=== PATIENT | male | born 1995 | race Caucasian/White ===

== ENCOUNTER 2019-08-17 08:10 | Emergency (ER) | payer OTHER ==
[2019-08-17 08:23] VITALS: BMI 21.7
[2019-08-17] MEDS ORDERED: SODIUM CHLORIDE 1,000 ML IV STA ×2 (08:35→09:53)
[2019-08-17] MEDS ORDERED: ONDANSETRON 4 MG/2 ML VIAL IVPUSH ONE (08:35)
[2019-08-17] MEDS ORDERED: KETOROLAC TROMETHAMINE 30 MG/1 ML VIAL IVPUSH STA (08:35)
[2019-08-17 09:06] LABS: BASO % 0.3 % (0-2.0); HEMATOCRIT 41.4 % (35.4-49); HEMOGLOBIN 13.8 GM/dL (11.7-16.9); MCH 27.9 pg (25.7-33.7); MCHC 33.2 g/dl (32.0-35.9); MEAN CELL VOLUME 83.9 fl (80-96); MEAN PLT VOLUME 8.9 fl (7.5-11.1); NEUT % 94.7 % (42.8-82.8); PLATELET COUNT 267 K/MM3 (134-434); RBC 4.93 M/mm3 (4.00-5.60); RDW 13.5 % (11.9-15.9); WHITE BLOOD COUNT 16.7 K/mm3 (4.0-10.0)
[2019-08-17] MEDS ORDERED: KETOROLAC TROMETHAMINE 30 MG/1 ML VIAL ONE (09:06)
[2019-08-17] MEDS ORDERED: ONDANSETRON 4 MG/2 ML VIAL ONE (09:06)
[2019-08-17 09:28] LABS: MAGNESIUM 2.4 mg/dL (1.8-2.4)
[2019-08-17 09:37] LABS: ALBUMIN 4.4 g/dl (3.4-5.0); BILIRUBIN,TOTAL 0.5 mg/dL (0.2-1); BLOOD UREA NITROGEN 8.5 mg/dL (7-18); CALCIUM 9.4 mg/dL (8.5-10.1); CREATININE 0.9 mg/dL (0.55-1.3); POTASSIUM 3.8 mmol/L (3.5-5.1); TOT PROT 7.6 g/dl (6.4-8.2)
--- NOTE | 2019-08-17 09:41 | PDOC ---
History of Present Illness - General Chief Complaint: Pain, Acute Stated Complaint: ABD PAIN,VOMITNG Time Seen by Provider: 08/17/19 08:23 History Source: Patient Exam Limitations: No Limitations - History of Present Illness Travel History: No Initial Comments: 08/17/19 09:03 24-year-old male with history of cholecystectomy presents to the ED with 4 days of nausea vomiting and now with diarrhea x3. Mother states symptoms began Richardson night after drinking alcohol and has continued since. Patient has been unable to sleep, take anything including ice chips by mouth due to the vomiting. Patient denies urinary frequency or back pain and denies any GI history. Patient does state upper abdominal pain greater in the right upper quadrant which he describes as a sharp cramping sensation. Patient denies fever , chills but states generalized weakness Timing/Duration: reports: constant Quality: reports: moderate, cramping Abdominal Pain Onset Location: reports: RUQ, flank Pain Radiation: reports: no radiation Activities at Onset: reports: none Aggravating Factors: improves with: Eating Alleviating Factors: improves with: Vomiting Past History - Travel Traveled outside of the country in the last 30 days: No Close contact w/someone who was outside of country & ill: No - Past Medical History Allergies/Adverse Reactions: Allergies Allergy/AdvReac Type Severity Reaction Status Date / Time No Known Allergies Allergy Verified 08/17/19 08:21 Home Medications: Ambulatory Orders NK [No Known Home Medication] 08/17/19 COPD: No - Surgical History Cholecystectomy: Yes - Psycho Social/Smoking Cessation Hx Smoking History: Never smoked Information on smoking cessation initiated: Yes Hx Alcohol Use: (rarely (did this past )) Patient Lives Alone: No Lives with/in: parents Review of Systems - Review of Systems Able to Perform ROS?: Yes Constitutional: Yes: Loss of Appetite, Malaise, Weakness HEENTM: No: Symptoms Reported Respiratory: No: Symptoms reported Cardiac (ROS): No: Symptoms Reported ABD/GI: Yes: Diarrhea, Nausea, Poor Appetite, Poor Fluid Intake, Vomiting, Abdominal cramping : No: Symptoms Reported Musculoskeletal: No: Symptoms Reported Integumentary: No: Symptoms Reported Neurological: No: Symptoms reported Hematologic/Lymphatic: No: Symptoms Reported *Physical Exam - Vital Signs Last Vital Signs Temp Pulse Resp BP Pulse Ox 98.4 F 87 18 140/74 98 08/17/19 08:21 08/17/19 08:21 08/17/19 08:21 08/17/19 08:21 08/17/19 08:21 - Physical Exam General Appearance: Yes: Nourished, Appropriately Dressed. No: Apparent Distress HEENT: negative: Pale Conjunctivae Neck: positive: Supple Respiratory/Chest: positive: Lungs Clear, Normal Breath Sounds. negative: Respiratory Distress, Accessory Muscle Use Cardiovascular: positive: Regular Rhythm, Regular Rate. negative: Murmur Gastrointestinal/Abdominal: positive: Normal Bowel Sounds, Soft, Tenderness ( Right upper quadrant right flank and mild right lower quadrant tenderness). negative: Distended Musculoskeletal: negative: CVA Tenderness Extremity: positive: Normal Inspection Integumentary: positive: Normal Color, Warm, Moist Neurologic: positive: Motor Strength 5/5 (Ambulatory) ED Treatment Course - LABORATORY CBC & Chemistry Diagram: 08/17/19 08:46 08/17/19 08:46 Medical Decision Making - Medical Decision Making 08/17/19 09:06 Chief complaint: Nausea and vomiting with diarrhea for the past 4 days. Patient with upper right quadrant cramping and states inability to sleep and tolerate by mouth Exam: Vital signs stable. Patient appears dry, right upper quadrant and right flank tenderness with mild right lower quadrant tenderness negative psoas negative obturator negative McBurney's Plan: Labs, antiemetics, fluids, urine, Toradol and reassessment . I will consider imaging once labs are reviewed 08/17/19 09:57 Laboratory Tests 08/17/19 08/17/19 08/17/19 08:46 08:46 08:46 WBC 16.7 H Hgb 13.8 Hct 41.4 Absolute Neuts (auto) 15.8 H Neutrophils % 94.7 H Lymphocytes % 3.0 L Monocytes % 2.0 L Anion Gap 6 L Random Glucose 123 H Lactic Acid 1.9 Total Bilirubin 0.5 AST 16 ALT 31 Lipase 08/17/19 08:46 WBC Hgb Hct Absolute Neuts (auto) Neutrophils % Lymphocytes % Monocytes % Anion Gap Random Glucose Lactic Acid Total Bilirubin AST ALT Lipase 104 Patient ordered for abdominal CT with contrast. Patient has no continual nausea and states pain has subsided moderately. Patient ordered for second liter of fluid urine and collection pending 08/17/19 12:50 Laboratory Tests 08/17/19 11:06 Urine pH > 9.0 H Ur Specific Cameron 1.072 H Urine Protein Negative Urine Glucose (UA) Negative Urine Ketones Negative Urine Blood Negative Urine Nitrite Negative Urine Bilirubin Negative Ur Leukocyte Esterase Negative Patient continues to feel better. 08/17/19 12:51 CT of the abdomen shows a low-density lesion identified in the right lobe of the liver measuring 8.5 mm. The pancreatic head is not well visualized. There is thickening of the antral wall first and second portion of the duodenum. Duodenitis is not excluded there is no evidence to suggest bowel obstruction. The light visualized portions of the appendix appear unremarkable. No free air or fluid is present. Based on patient's history of excessive alcohol use Friday night followed by symptoms I believe his symptoms are related to the alcohol intake. Patient will be discharged home with Zofran recommendations to follow a bland diet and to return to the ED if his symptoms worsen or he is unable to tolerate by mouth Discharge - Discharge Information Problems reviewed: Yes Clinical Impression/Diagnosis: Nausea and vomiting Condition: Improved Disposition: HOME - Follow up/Referral - Patient Discharge Instructions Patient Printed Discharge Instructions: Nausea and Vomiting-Adult Additional Instructions: Please follow a bland diet for the next 48 hours and then you may advance as tolerated. Take Zofran as needed for nausea if your symptoms worsen despite above recommendations please return to the ED. - Post Discharge Activity
[2019-08-17 10:04] LABS: ANISOCYTOSIS 0; MACROCYTOSIS 0; PLATELET ESTIMATE NORMAL
[2019-08-17 12:35] LABS: URINE APPEARANCE CLEAR; URINE BILIRUBIN NEGATIVE (NEGATIVE); URINE COLOR YELLOW; URINE GLUCOSE (UA) NEGATIVE (NEGATIVE)
[2019-08-17 12:36] LABS: PH,URINE > 9.0 (5.0-8.0); URINE KETONE NEGATIVE (NEGATIVE); URINE LEUK ESTERASE NEGATIVE (NEGATIVE); URINE NITRITE NEGATIVE (NEGATIVE); URINE PROTEIN NEGATIVE (NEGATIVE)
[2019-08-17 12:40] VITALS: BP 135/65; PULSE 78; TEMP 98.5
== END 2019-08-17 13:09 | disposition home or self-care (01) ==
LOC: JER 08:10
PROC: 3E0337Z Introduction of Electrolytic and Water Balance Substance into Peripheral Vein, Percutaneous Approach (ICD-10-PCS; principal; 2019-08-17)
PROC: 3E033GC Introduction of Other Therapeutic Substance into Peripheral Vein, Percutaneous Approach (ICD-10-PCS; 2019-08-17)
PROC: 3E0333Z Introduction of Anti-inflammatory into Peripheral Vein, Percutaneous Approach (ICD-10-PCS; 2019-08-17)
DX: R11.2 Nausea with vomiting, unspecified (principal)
CPT/HCPCS: 36415; 74177-TC; 80053; 81003; 83605; 83690; 83735; 85025; 87086; 96361; 96374; 96375; 99283-25; J7030

== ENCOUNTER 2020-04-09 03:26 | Emergency (ER) | payer SELFPAY ==
--- NOTE | 2020-04-09 03:31 | PDOC ---
History of Present Illness - General Stated Complaint: FALL,LACERATION FOREHEAD Time Seen by Provider: 04/09/20 03:30 History Source: Patient, EMS Exam Limitations: No Limitations - History of Present Illness Initial Comments: Pt is a 24 yo M, with no significant PMH, who is presenting via EMS for a head injury. EMS states pt was drinking alcohol with his friends, when he tripped on the sidewalk and hit his head. EMS denies LOC from friends' history. Pt endorses drinking alcohol, but does not provide a consistent story. Pt cannot provide reliable ROS due to intoxication. Allergies: NKDA PCP: Unknown Social: Pt endorses drinking beer and Evon. Pt denies any cigarette or drug use. Pt denies any recent travel or sick contacts. Surgical: cholecystectomy Family: no relevant history. 04/09/20 04:24 04/09/20 06:38 Past History - Travel History Traveled outside of the country in the last 30 days: No Close contact w/someone who was outside of country & ill: No - Medical History Allergies/Adverse Reactions: Allergies Allergy/AdvReac Type Severity Reaction Status Date / Time No Known Allergies Allergy Verified 04/09/20 03:37 Home Medications: Ambulatory Orders Ondansetron HCl [Zofran] 4 mg PO TID PRN #12 tablet 08/17/19 COPD: No - Surgical History Cholecystectomy: Yes - Immunization History Immunization Up to Date: No - Psycho-Social/Smoking History Smoking History: Never smoked Review of Systems - Review of Systems Able to Perform ROS?: No (intox) *Physical Exam - Physical Exam Vitals stable, pt afebrile. Pt in NAD, thin body habitus. Pt intoxicated and is slurring speech. Pt alert but disoriented (oriented only to person) furnace repairer generally intact, muscular strength and sensation intact. No midline spinal tenderness, step-offs, or crepitus. Head normocephalic. ~2 cm linear laceration to forehead. Bleeding well- controlled. No foreign debris. Eyes PERRLA, EOMI. Oropharynx without erythema or exudates, no LAD b/l. No nasal congestion. Hearing intact. Clear heart sounds, S1/S2, no JVD, b/l pedal edema, or heart murmur. Clear lung sounds, no respiratory distress, wheezes, crackles, or accessory muscle use. No abdominal or CVA tenderness to palpation, no rebound, no guarding. Abdomen soft, non-distended, and with normoactive bowel sounds. Skin without jaundice or rash. 04/09/20 06:41 Procedures - Laceration/Wound Repair Anterior Frontal Wound Length: to 2.5 cm Wound Explored: clean, no foreign body present Wound's Depth, Shape: superficial, linear Irrigated w/ Saline: Yes Anesthesia: 1% Lidocaine w/ Epi Amount of Anesthetic (ccs): 4 Wound Debrided: minimal Wound Repaired With: Sutures Suture Size/Type: 6:0 Number of Sutures: 5 Layer Closure: No Number of Deep Layer Sutures: 0 Sterile Dressing Applied: Yes Medical Decision Making - Medical Decision Making Pt was seen at bedside, also will be seen by attending Dr. Burrows. Pt presenting with head injury s/p intoxication and fall. Laceration repaired using 1% epi with lido, 5 (size 6) sutures placed. See procedure note. Will continue to reassess pt and monitor for symptomatic improvement. 04/09/20 06:43 CTH and C-spine without acute pathology. Pending clinical sobriety. Pt signed out to day team. 04/09/20 06:44 Discharge - Discharge Information Problems reviewed: Yes Clinical Impression/Diagnosis: Head injury Qualifiers: Encounter type: initial encounter Qualified Code(s): S09.90XA - Unspecified injury of head, initial encounter Forehead laceration Qualifiers: Encounter type: initial encounter Qualified Code(s): S01.81XA - Laceration without foreign body of other part of head, initial encounter Alcohol intoxication Qualifiers: Complication of substance-induced condition: uncomplicated Qualified Code(s): F10.920 - Alcohol use, unspecified with intoxication, uncomplicated - Follow up/Referral - Patient Discharge Instructions Patient Printed Discharge Instructions: DI for Laceration Repair -- Simple, DI for Closed Head Injury, DI for Alcohol Poisoning Additional Instructions: You were seen in the ER today after a fall and alcohol use. The results of your imaging today was normal. You received 5 sutures on your forehead which need to be removed in 5 days. Please keep the area clean and dry for 24 hours. Do not scrub the area as you can remove or break the sutures. After 24 hours, you can gently clean the area with warm water and soap. Please return to the ER for a wound check if you have expanding redness or drainage from the area. Please follow-up with your primary care doctor within 1-2 days to discuss your visit and make sure your symptoms have improved. Please return to the ER if you have any worsening pain, development of fevers or chills, loss of consciousness, inability to tolerate food or fluids, or any other concerns. - Post Discharge Activity
--- NOTE | 2020-04-09 03:31 | PDOC ---
Attending Attestation - Resident Resident Name: Juanita Escudero - ED Attending Attestation I have performed the following: I have examined & evaluated the patient, The case was reviewed & discussed with the resident, I agree w/resident's findings & plan - HPI HPI: 04/09/20 04:46 Pt was drinking alcohol and stumbled and fell and has a 1.5 inch vertical laceration in the center of his forehead. Pt has no complaints. - Physicial Exam PE: 04/09/20 04:46 Normal exam except that pt is drunk and he has a lac in center of head. Neuro intact. Pt is intox - Medical Decision Making 04/09/20 04:47 5 6.0 sutures placed in the laceration 04/09/20 06:20 COMPARISON: None. FINDINGS: No evidence of fracture, dislocation or jumped facet. Precervical soft tissues are normal in appearance. No evidence of airway compromise. Of note, the patient's head is turned to the right which gives a rotatory appearance to the occiput and C1 over C2. This is a postural change and not associated with trauma to the cervical spine. Otherwise, normal cervical alignment. The occiput, C1 and C2 relationship is normal. No facet degenerative change. No cervical ribs. Lung apices are clear. IMPRESSION Postural change to the occiput, C1 and C2 relationship. Otherwise, normal cervical spine CT. Stable cervical spine appearance. 04/09/20 06:21 Referring Physician: DAMIÁN DYER Patient Name: GABRIELE WEBB THIS IS A PRELIMINARY REPORT FROM [facility] DATE OF SERVICE: 2020-04-09 05:06:23 IMAGES: [id number] EXAM: HEAD CT WITHOUT CONTRAST HISTORY: Closed head trauma, fall. 24-year-old male. COMPARISON: None. FINDINGS: CSF spaces are normal. Periventricular white matter is of normal attenuation. No intracranial mass or mass affect. No evidence of an acute intracranial bleed. Basal ganglia, brain stem and cerebellum are normal in appearance. Physiologic calcifications are noted. Bone windows show the mastoid and paranasal sinuses to be well aerated. The orbits are unremarkable. No bone lesions identified. IMPRESSION: Normal noncontrast head CT. No evidence of an acute intracranial bleed. Discharge - Discharge Information Problems reviewed: Yes Clinical Impression/Diagnosis: Head injury Qualifiers: Encounter type: initial encounter Qualified Code(s): S09.90XA - Unspecified injury of head, initial encounter Forehead laceration Qualifiers: Encounter type: initial encounter Qualified Code(s): S01.81XA - Laceration without foreign body of other part of head, initial encounter Alcohol intoxication Qualifiers: Complication of substance-induced condition: uncomplicated Qualified Code(s): F10.920 - Alcohol use, unspecified with intoxication, uncomplicated Condition: Improved Disposition: HOME - Follow up/Referral - Patient Discharge Instructions Patient Printed Discharge Instructions: DI for Laceration Repair -- Simple, DI for Closed Head Injury, DI for Alcohol Poisoning Additional Instructions: You were seen in the ER today after a fall and alcohol use. The results of your imaging today was normal. You received 5 sutures on your forehead which need to be removed in 5 days. Please keep the area clean and dry for 24 hours. Do not scrub the area as you can remove or break the sutures. After 24 hours, you can gently clean the area with warm water and soap. Please return to the ER for a wound check if you have expanding redness or drainage from the area. Please follow-up with your primary care doctor within 1-2 days to discuss your visit and make sure your symptoms have improved. Please return to the ER if you have any worsening pain, development of fevers or chills, loss of consciousness, inability to tolerate food or fluids, or any other concerns. Print Language: SLOV[place] - Post Discharge Activity
[2020-04-09] MEDS ORDERED: DIPHTH,PERTUSS(ACELL),TET 0.5 ML DISP.SYRIN IM ONE (03:56)
[2020-04-09 03:58] VITALS: BMI 20.7
[2020-04-09 06:41] VITALS: TEMP 97.1
--- NOTE | 2020-04-09 07:16 | PDOC ---
*Physical Exam - Vital Signs Last Vital Signs Temp Pulse Resp BP Pulse Ox 97.1 F L 108 H 18 117/55 L 100 04/09/20 06:40 04/09/20 06:40 04/09/20 03:34 04/09/20 06:40 04/09/20 06:40 Medical Decision Making - Medical Decision Making 04/09/20 07:15 s/p fall, intoxicated head laceration reparired by night team head and c-spine ct negative. d/c when clinically sober 04/09/20 09:48 pt more alert to person and place stating intention to go home. able to ambulate without assistance in the ED and is AO x 3 04/09/20 18:45 Discharge - Discharge Information Problems reviewed: Yes Clinical Impression/Diagnosis: Head injury Qualifiers: Encounter type: initial encounter Qualified Code(s): S09.90XA - Unspecified injury of head, initial encounter Forehead laceration Qualifiers: Encounter type: initial encounter Qualified Code(s): S01.81XA - Laceration without foreign body of other part of head, initial encounter Alcohol intoxication Qualifiers: Complication of substance-induced condition: uncomplicated Qualified Code(s): F10.920 - Alcohol use, unspecified with intoxication, uncomplicated Condition: Improved Disposition: HOME - Follow up/Referral - Patient Discharge Instructions Patient Printed Discharge Instructions: DI for Laceration Repair -- Simple, DI for Closed Head Injury, DI for Alcohol Poisoning Additional Instructions: You were seen in the ER today after a fall and alcohol use. The results of your imaging today was normal. You received 5 sutures on your forehead which need to be removed in 5 days. Please keep the area clean and dry for 24 hours. Do not scrub the area as you can remove or break the sutures. After 24 hours, you can gently clean the area with warm water and soap. Please return to the ER for a wound check if you have expanding redness or drainage from the area. Please follow-up with your primary care doctor within 1-2 days to discuss your visit and make sure your symptoms have improved. Please return to the ER if you have any worsening pain, development of fevers or chills, loss of consciousness, inability to tolerate food or fluids, or any other concerns. Print Language: [place] - Post Discharge Activity
[2020-04-09 09:26] VITALS: BP 113/68; PULSE 72
== END 2020-04-09 09:59 | disposition home or self-care (01) ==
LOC: JER 03:26
DX: S09.90XA Unspecified injury of head, initial encounter (principal); S01.81XA Laceration without foreign body of other part of head, initial encounter; F10.920 Alcohol use, unspecified with intoxication, uncomplicated; W19.XXXA Unspecified fall, initial encounter
CPT/HCPCS: 70450-TC; 72125-TC; 99284-25

== ENCOUNTER 2021-05-29 21:11 | Inpatient (IN) | payer OTHER ==
[2021-05-29 21:48] VITALS: BMI 21.4
[2021-05-29] MEDS ORDERED: SODIUM CHLORIDE 1,000 ML IV STA (22:27)
[2021-05-29] MEDS ORDERED: morphine CARPU-JECT 2 MG/1 ML DISP.SYRIN IVPUSH ONE (23:00)
[2021-05-29] MEDS ORDERED: ONDANSETRON 4 MG/2 ML VIAL IVPUSH ONE (23:00)
[2021-05-29 23:10] LABS: HEMATOCRIT 41.6 % (35.4-49); HEMOGLOBIN 13.7 GM/dL (11.7-16.9); MCH 27.3 pg (25.7-33.7); MCHC 32.9 g/dl (32.0-35.9); MEAN PLT VOLUME 8.3 fl (7.5-11.1); PLATELET COUNT 317 10^3/uL (134-434); RBC 5.01 M/mm3 (4.00-5.60); WHITE BLOOD COUNT 21.8 K/mm3 (4.0-10.0)
[2021-05-29] MEDS ORDERED: ONDANSETRON 4 MG/2 ML VIAL ONE (23:32)
[2021-05-29] MEDS ORDERED: morphine SULFATE 4 MG/ML VIAL ONE (23:32)
[2021-05-29 23:37] LABS: CHLORIDE 104 mmol/L (98-107); SODIUM 139 mmol/L (136-145)
[2021-05-29 23:38] LABS: CALCIUM 10.2 mg/dL (8.5-10.1)
[2021-05-29 23:39] LABS: ALBUMIN 5.1 g/dl (3.4-5.0); ANION GAP 12 MMOL/L (8-16); BLOOD UREA NITROGEN 11.5 mg/dL (7-18); CO2 23 mmol/L (21-32); GLUCOSE,RANDOM 119 mg/dL (74-106)
[2021-05-29 23:42] LABS: CREATININE 1.1 mg/dL (0.55-1.3); SGOT/AST 25 U/L (15-37); SGPT/ALT 45 U/L (13-61)
[2021-05-29 23:44] LABS: BILIRUBIN,TOTAL 0.5 mg/dL (0.2-1)
[2021-05-29 23:45] LABS: ALK PHOS 122 U/L (45-117)
[2021-05-30 00:32] LABS: LIPASE 83 U/L (73-393)
[2021-05-30] MEDS ORDERED: chlorproMAZINE HCL 25 MG TABLET PO ONE (02:57)
[2021-05-30 03:08] LABS: PH,URINE 8.5 (5.0-8.0); URINE APPEARANCE CLEAR; URINE BILIRUBIN NEGATIVE (NEGATIVE); URINE COLOR YELLOW; URINE GLUCOSE (UA) NEGATIVE (NEGATIVE); URINE KETONE 3+ (NEGATIVE); URINE LEUK ESTERASE NEGATIVE (NEGATIVE); URINE NITRITE NEGATIVE (NEGATIVE); URINE PROTEIN NEGATIVE (NEGATIVE)
[2021-05-30] MEDS ORDERED: PROCHLORPERAZINE INJECTION 10 MG/2 ML VIAL IVPB ONE (04:44)
[2021-05-30] MEDS ORDERED: SODIUM CHLORIDE 0.45% 1,000 ML IV SCH (05:15)
[2021-05-30] MEDS ORDERED: PANTOPRAZOLE SODIUM 40 MG VIAL IVPUSH ONE (05:18)
[2021-05-30] MEDS ORDERED: CEFTRIAXONE 1,000 MG in DEXTROSE 5%-WATER - 50 ML IVPB ONE (05:19)
[2021-05-30 05:40] LABS: URINE AMPHETAMINES NEGATIVE (NEGATIVE); URINE BARBITURATES NEGATIVE (NEGATIVE); URINE BENZODIAZEPINES NEGATIVE (NEGATIVE)
[2021-05-30 05:41] LABS: COCAINE, UR NEGATIVE (NEGATIVE); METHADONE, UR NEGATIVE (NEGATIVE); PHENCYCLIDINE,URINE NEGATIVE (NEGATIVE)
[2021-05-30] MEDS ORDERED: PROCHLORPERAZINE INJECTION 10 MG/2 ML VIAL ONE (06:08)
[2021-05-30] MEDS ORDERED: PANTOPRAZOLE SODIUM 40 MG VIAL ONE (06:08)
[2021-05-30] MEDS: SODIUM CHLORIDE 1,000 ML IV SCH ×2 (06:20→21:00)
[2021-05-30 06:37] LABS: OPIATES, URI POSITIVE (NEGATIVE)
[2021-05-30] MEDS ORDERED: CEFTRIAXONE 1 GM/50 ML BAG ONE (08:31)
[2021-05-30] MEDS ORDERED: morphine CARPU-JECT 2 MG/1 ML DISP.SYRIN IVPUSH ONE (08:45)
[2021-05-30] MEDS ORDERED: MORPHINE SULFATE 2 MG/ML VIAL IVPUSH ONE (08:45)
[2021-05-30] MEDS ORDERED: MORPHINE SULFATE 2 MG/ML VIAL ONE (08:50)
[2021-05-30] MEDS ORDERED: chlorproMAZINE HCL 25 MG TABLET PO SCH (10:00)
[2021-05-30 11:08] LABS: HEMATOCRIT 34.3 % (35.4-49); HEMOGLOBIN 11.5 GM/dL (11.7-16.9); MCH 27.8 pg (25.7-33.7); MCHC 33.4 g/dl (32.0-35.9); MEAN CELL VOLUME 83.1 fl (80-96); MEAN PLT VOLUME 8.4 fl (7.5-11.1); PLATELET COUNT 245 10^3/uL (134-434); RBC 4.13 M/mm3 (4.00-5.60); RDW 13.8 % (11.9-15.9); WHITE BLOOD COUNT 20.7 K/mm3 (4.0-10.0)
[2021-05-30 11:27] LABS: ALBUMIN 4.1 g/dl (3.4-5.0); CALCIUM 8.7 mg/dL (8.5-10.1)
[2021-05-30 11:28] LABS: BLOOD UREA NITROGEN 12.1 mg/dL (7-18); MAGNESIUM 2.4 mg/dL (1.8-2.4)
[2021-05-30 11:31] LABS: CREATININE 0.9 mg/dL (0.55-1.3); PHOSPHOROUS 4.2 mg/dL (2.5-4.9)
[2021-05-30 11:32] LABS: BILIRUBIN,TOTAL 0.4 mg/dL (0.2-1); TOT PROT 7.3 g/dl (6.4-8.2)
[2021-05-30] MEDS ORDERED: ENOXAPARIN NA (PORCINE) 40 MG/0.4 ML DISP.SYRIN SQ ONE (11:43)
[2021-05-30] MEDS: ENOXAPARIN NA (PORCINE) 40 MG/0.4 ML DISP.SYRIN SQ SCH (11:43)
[2021-05-30 11:52] LABS: ANISOCYTOSIS 0; MACROCYTOSIS 0; OVALOCYTE 1+; PLATELET ESTIMATE NORMAL
[2021-05-30] MEDS ORDERED: METOCLOPRAMIDE HCL 10 MG TABLET (FP) PO SCH (16:30)
[2021-05-30] MEDS ORDERED: ONDANSETRON 4 MG TABLET PO PRN (18:51)
[2021-05-30] MEDS ORDERED: MORPHINE SULFATE 2 MG/ML VIAL IVPUSH PRN (19:06)
[2021-05-30 21:16] LABS: BLOOD UREA NITROGEN 11.3 mg/dL (7-18)
[2021-05-30 21:20] LABS: CREATININE 0.8 mg/dL (0.55-1.3)
[2021-05-30] MEDS: ACETAMINOPHEN 1000 MG/100 ML VIAL (NON FORMULARY) IVPB PRN (22:59)
[2021-05-31] MEDS: SODIUM CHLORIDE 1,000 ML IV SCH ×2 (03:51→06:46)
[2021-05-31 08:41] LABS: BASO % 0.1 % (0-2.0); EOS % 0.1 % (0-4.5); HEMOGLOBIN 10.9 GM/dL (11.7-16.9); LYMPH % 9.7 % (8-40); MCH 27.5 pg (25.7-33.7); MEAN CELL VOLUME 83.2 fl (80-96); MEAN PLT VOLUME 8.2 fl (7.5-11.1); MONO % 6.3 % (3.8-10.2); NEUT % 83.8 % (42.8-82.8); PLATELET COUNT 225 10^3/uL (134-434); RBC 3.96 M/mm3 (4.00-5.60); WHITE BLOOD COUNT 14.9 K/mm3 (4.0-10.0)
[2021-05-31 09:01] LABS: MAGNESIUM 2.5 mg/dL (1.8-2.4)
[2021-05-31 09:04] LABS: PHOSPHOROUS 2.6 mg/dL (2.5-4.9)
[2021-05-31] MEDS: ENOXAPARIN NA (PORCINE) 40 MG/0.4 ML DISP.SYRIN SQ SCH (09:44)
[2021-05-31] MEDS: PANTOPRAZOLE SODIUM 40 MG VIAL IVPUSH SCH (09:45)
[2021-05-31] MEDS: LACTATED RINGERS SOLUTION 1,000 ML/1,000 ML INFUS.BAG IV SCH ×2 (10:15→18:14)
[2021-05-31] MEDS: METOCLOPRAMIDE HCL INJECTION 10 MG/2 ML VIAL IVPUSH SCH ×2 (11:08→17:32)
[2021-05-31] MEDS: MAG HYDROX/AL HYDROX/SIMETH 30 ML UNIT-DOSE CUP PO PRN (11:30)
[2021-05-31] MEDS: ACETAMINOPHEN 1000 MG/100 ML VIAL (NON FORMULARY) IVPB PRN (11:56)
[2021-05-31] MEDS: POLYETHYLENE GLYCOL (HEALTHYLAX) 3350 17 GM PACKET PO SCH ×2 (14:45→21:17)
[2021-06-01] MEDS: METOCLOPRAMIDE HCL INJECTION 10 MG/2 ML VIAL IVPUSH SCH ×2 (01:46→09:34)
[2021-06-01] MEDS: LACTATED RINGERS SOLUTION 1,000 ML/1,000 ML INFUS.BAG IV SCH ×3 (03:14→21:56)
[2021-06-01] MEDS: POLYETHYLENE GLYCOL (HEALTHYLAX) 3350 17 GM PACKET PO SCH (06:58)
[2021-06-01] MEDS ORDERED: MORPHINE SULFATE 2 MG/ML VIAL IVPUSH ONE (08:45)
[2021-06-01] MEDS: PANTOPRAZOLE SODIUM 40 MG VIAL IVPUSH SCH (09:33)
[2021-06-01] MEDS: ENOXAPARIN NA (PORCINE) 40 MG/0.4 ML DISP.SYRIN SQ SCH (09:33)
[2021-06-01 09:40] LABS: HEMOGLOBIN 11.2 GM/dL (11.7-16.9); MCH 27.4 pg (25.7-33.7); MCHC 32.9 g/dl (32.0-35.9); MEAN CELL VOLUME 83.3 fl (80-96); MEAN PLT VOLUME 9.1 fl (7.5-11.1); PLATELET COUNT 223 10^3/uL (134-434); RBC 4.09 M/mm3 (4.00-5.60); RDW 13.7 % (11.9-15.9); WHITE BLOOD COUNT 13.1 K/mm3 (4.0-10.0)
[2021-06-01 10:04] LABS: ALBUMIN 3.9 g/dl (3.4-5.0); BLOOD UREA NITROGEN 11.5 mg/dL (7-18); CALCIUM 8.6 mg/dL (8.5-10.1); MAGNESIUM 2.2 mg/dL (1.8-2.4)
[2021-06-01 10:07] LABS: CREATININE 0.7 mg/dL (0.55-1.3); PHOSPHOROUS 2.5 mg/dL (2.5-4.9)
[2021-06-01 10:08] LABS: BILIRUBIN,TOTAL 0.6 mg/dL (0.2-1); TOT PROT 6.9 g/dl (6.4-8.2)
[2021-06-01] MEDS ORDERED: ACETAMINOPHEN 325 MG TABLET (FP) PO ONE (19:43)
[2021-06-01] MEDS: METOCLOPRAMIDE HCL INJECTION 10 MG/2 ML VIAL IVPUSH PRN (23:56)
[2021-06-02 08:31] LABS: HEMATOCRIT 33.9 % (35.4-49); HEMOGLOBIN 11.3 GM/dL (11.7-16.9); MCH 28.2 pg (25.7-33.7); MCHC 33.4 g/dl (32.0-35.9); MEAN CELL VOLUME 84.4 fl (80-96); MEAN PLT VOLUME 8.9 fl (7.5-11.1); PLATELET COUNT 230 10^3/uL (134-434); RBC 4.02 M/mm3 (4.00-5.60); RDW 13.2 % (11.9-15.9); WHITE BLOOD COUNT 10.6 K/mm3 (4.0-10.0)
[2021-06-02] MEDS: MAG HYDROX/AL HYDROX/SIMETH 30 ML UNIT-DOSE CUP PO PRN ×2 (08:33→16:21)
[2021-06-02 08:55] LABS: ALBUMIN 3.6 g/dl (3.4-5.0); BLOOD UREA NITROGEN 7.7 mg/dL (7-18); CALCIUM 8.6 mg/dL (8.5-10.1)
[2021-06-02 08:58] LABS: CREATININE 0.8 mg/dL (0.55-1.3)
[2021-06-02 09:00] LABS: BILIRUBIN,TOTAL 0.4 mg/dL (0.2-1); TOT PROT 6.4 g/dl (6.4-8.2)
[2021-06-02] MEDS: ENOXAPARIN NA (PORCINE) 40 MG/0.4 ML DISP.SYRIN SQ SCH (09:25)
[2021-06-02] MEDS: PANTOPRAZOLE SODIUM 40 MG VIAL IVPUSH SCH (09:26)
[2021-06-02] MEDS: POLYETHYLENE GLYCOL (HEALTHYLAX) 3350 17 GM PACKET PO SCH (09:26)
[2021-06-02] MEDS: LACTATED RINGERS SOLUTION 1,000 ML/1,000 ML INFUS.BAG IV SCH (09:33)
[2021-06-02] MEDS: METOCLOPRAMIDE HCL INJECTION 10 MG/2 ML VIAL IVPUSH PRN ×2 (09:34→16:21)
[2021-06-02] MEDS ORDERED: VANCOMYCIN 1 GRAM (PRE-DOCKED) 1,000 MG/250 ML BAG IVPB ONE (09:45)
[2021-06-02] MEDS ORDERED: ACETAMINOPHEN 325 MG TABLET (FP) PO ONE (22:33)
[2021-06-03] MEDS ORDERED: POTASSIUM CHLORIDE TABS 10 MEQ TABLET.ER (FP) PO ONE (10:00)
[2021-06-03] MEDS: LACTATED RINGERS SOLUTION 1,000 ML/1,000 ML INFUS.BAG IV SCH (10:44)
[2021-06-03] MEDS: POLYETHYLENE GLYCOL (HEALTHYLAX) 3350 17 GM PACKET PO SCH (11:02)
[2021-06-03] MEDS: PANTOPRAZOLE SODIUM 40 MG VIAL IVPUSH SCH (11:02)
[2021-06-03] MEDS: ENOXAPARIN NA (PORCINE) 40 MG/0.4 ML DISP.SYRIN SQ SCH (11:02)
[2021-06-03 13:16] VITALS: BP 141/70; PULSE 97; TEMP 98.4
== END 2021-06-03 14:15 | disposition home or self-care (01) | DRG 249 ==
LOC: JER 21:11 → JERBED 05-30 03:23 → J7W 05-30 14:22
PROVIDERS: ADMIT Internal Medicine
DX: R11.2 Nausea with vomiting, unspecified (principal); E86.0 Dehydration; R19.7 Diarrhea, unspecified; D72.829 Elevated white blood cell count, unspecified; R10.31 Right lower quadrant pain; F39 Unspecified mood [affective] disorder; R97.20 Elevated prostate specific antigen [PSA]; F12.988 Cannabis use, unspecified with other cannabis-induced disorder; K21.9 Gastro-esophageal reflux disease without esophagitis
CPT/HCPCS: 36415; 71045-TC-FY; 71260-TC; 74177-TC; 80048; 80053; 80307; 81003; 83036; 83690; 83735; 84100; 85025; 85027; 87040; 87045; 87046; 87177; 87209; 87324; 87449; 93005; 93010; 99285-25; C9803; J0131; U0003; U0005

== ENCOUNTER 2021-06-11 21:11 | Observation (INO) | payer OTHER ==
[2021-06-11 21:59] VITALS: BMI 19.5
[2021-06-11] MEDS ORDERED: METOCLOPRAMIDE HCL INJECTION 10 MG/2 ML VIAL IVPB ONE (23:12)
[2021-06-11] MEDS ORDERED: FAMOTIDINE 20 MG/50 ML IVPB 20 MG/50 ML MG IVPB ONE ×2 (23:12→23:23)
[2021-06-11] MEDS ORDERED: SODIUM CHLORIDE 0.9% 500 ML INFUS.BAG IV ONE (23:12)
[2021-06-11] MEDS ORDERED: MAG HYDROX/AL HYDROX/SIMETH -MYLANTA- ORAL SUSPENSION PO ONE (23:13)
[2021-06-11] MEDS ORDERED: METOCLOPRAMIDE HCL INJECTION 10 MG/2 ML VIAL ONE (23:22)
[2021-06-11] MEDS ORDERED: MAG HYDROX/AL HYDROX/SIMETH 30 ML UNIT-DOSE CUP ONE (23:22)
[2021-06-11 23:48] LABS: HEMATOCRIT 36.3 % (35.4-49); HEMOGLOBIN 11.9 GM/dL (11.7-16.9); MCH 27.9 pg (25.7-33.7); MCHC 32.7 g/dl (32.0-35.9); MEAN CELL VOLUME 85.5 fl (80-96); MEAN PLT VOLUME 8.5 fl (7.5-11.1); PLATELET COUNT 309 10^3/uL (134-434); RBC 4.25 M/mm3 (4.00-5.60); RDW 14.8 % (11.9-15.9); WHITE BLOOD COUNT 18.6 K/mm3 (4.0-10.0)
[2021-06-12 00:09] LABS: CALCIUM 9.6 mg/dL (8.5-10.1)
[2021-06-12 00:10] LABS: BLOOD UREA NITROGEN 9.3 mg/dL (7-18)
[2021-06-12 00:13] LABS: CREATININE 0.9 mg/dL (0.55-1.3)
[2021-06-12 00:14] LABS: BILIRUBIN,TOTAL 0.6 mg/dL (0.2-1)
[2021-06-12 00:36] LABS: ALBUMIN 4.3 g/dl (3.4-5.0)
[2021-06-12] MEDS ORDERED: LACTATED RINGERS SOLUTION 1000 ML INFUS.BAG IV ONE (00:40)
[2021-06-12 00:42] LABS: ANISOCYTOSIS 1+; MACROCYTOSIS 0; PLATELET ESTIMATE NORMAL
[2021-06-12] MEDS ORDERED: LIDOCAINE VISCOUS 2% ORAL/TOP 15 ML UNIT-DOSE CUP MM ONE (00:44)
[2021-06-12] MEDS ORDERED: HALOPERIDOL LACTATE 5 MG/ML IM ONE (01:03)
[2021-06-12] MEDS ORDERED: LIDOCAINE VISCOUS 2% ORAL/TOP 15 ML UNIT-DOSE CUP ONE (01:48)
[2021-06-12] MEDS ORDERED: HALOPERIDOL LACTATE 5 MG/ML ONE (01:49)
[2021-06-12] MEDS ORDERED: MAG HYDROX/AL HYDROX/SIMETH 30 ML UNIT-DOSE CUP ONE (04:08)
[2021-06-12] MEDS ORDERED: NICOTINE 7 MG/24 HOURS TOPICAL PATCH TD PRN (05:15)
[2021-06-12 07:01] LABS: BASO % 0.3 % (0-2.0); HEMATOCRIT 33.8 % (35.4-49); HEMOGLOBIN 11.2 GM/dL (11.7-16.9); LYMPH % 2.7 % (8-40); MEAN CELL VOLUME 84.9 fl (80-96); MEAN PLT VOLUME 8.1 fl (7.5-11.1); MONO % 2.4 % (3.8-10.2); NEUT % 94.6 % (42.8-82.8); PLATELET COUNT 257 10^3/uL (134-434); RBC 3.98 M/mm3 (4.00-5.60); RDW 14.4 % (11.9-15.9); WHITE BLOOD COUNT 15.6 K/mm3 (4.0-10.0)
[2021-06-12 07:41] LABS: BLOOD UREA NITROGEN 6.9 mg/dL (7-18); CALCIUM 8.7 mg/dL (8.5-10.1)
[2021-06-12 07:42] LABS: MAGNESIUM 2.4 mg/dL (1.8-2.4)
[2021-06-12 07:45] LABS: CREATININE 0.6 mg/dL (0.55-1.3); PHOSPHOROUS 3.5 mg/dL (2.5-4.9)
[2021-06-12 09:26] LABS: ANISOCYTOSIS 0; MACROCYTOSIS 0; PLATELET ESTIMATE NORMAL
[2021-06-12] MEDS ORDERED: ENOXAPARIN NA (PORCINE) 40 MG/0.4 ML DISP.SYRIN SQ ONE (09:36)
[2021-06-12] MEDS ORDERED: PANTOPRAZOLE SODIUM 40 MG VIAL ONE (09:37)
[2021-06-12] MEDS: PANTOPRAZOLE SODIUM 40 MG VIAL IVPUSH SCH (09:38)
[2021-06-12] MEDS: SODIUM CHLORIDE 1,000 ML IV SCH ×2 (09:38→11:56)
[2021-06-12] MEDS: ENOXAPARIN NA (PORCINE) 40 MG/0.4 ML DISP.SYRIN SQ SCH (09:38)
[2021-06-12] MEDS ORDERED: NICOTINE 7 MG/24 HOURS TOPICAL PATCH TD SCH (10:00)
[2021-06-12] MEDS ORDERED: SCOPOLAMINE HYDROBROMIDE 1 PATCH PATCH.TD72 TD SCH (10:15)
[2021-06-12 12:04] LABS: PH,URINE 6.5 (5.0-8.0); URINE APPEARANCE CLEAR; URINE BILIRUBIN NEGATIVE (NEGATIVE); URINE COLOR YELLOW; URINE GLUCOSE (UA) NEGATIVE (NEGATIVE); URINE KETONE 1+ (NEGATIVE); URINE LEUK ESTERASE NEGATIVE (NEGATIVE); URINE NITRITE NEGATIVE (NEGATIVE); URINE PROTEIN NEGATIVE (NEGATIVE); URINE UROBILINOGEN 0.2 mg/dL (0.2-1.0)
[2021-06-13] MEDS: SODIUM CHLORIDE 1,000 ML IV SCH ×2 (00:32→06:13)
[2021-06-13] MEDS ORDERED: ACETAMINOPHEN 325 MG TABLET (FP) PO ONE (02:42)
[2021-06-13 08:11] LABS: RETICULOCYTES 0.92 % (0.5-1.5)
[2021-06-13 08:13] LABS: BASO % 0.3 % (0-2.0); EOS % 0.3 % (0-4.5); HEMATOCRIT 33.3 % (35.4-49); HEMOGLOBIN 11.2 GM/dL (11.7-16.9); LYMPH % 22.8 % (8-40); MCH 28.3 pg (25.7-33.7); MCHC 33.6 g/dl (32.0-35.9); MEAN CELL VOLUME 84.4 fl (80-96); MEAN PLT VOLUME 8.7 fl (7.5-11.1); MONO % 7.9 % (3.8-10.2); NEUT % 68.7 % (42.8-82.8); PLATELET COUNT 241 10^3/uL (134-434); RBC 3.95 M/mm3 (4.00-5.60); RDW 14.3 % (11.9-15.9); WHITE BLOOD COUNT 10.1 K/mm3 (4.0-10.0)
[2021-06-13 08:31] LABS: CALCIUM 8.5 mg/dL (8.5-10.1)
[2021-06-13 08:32] LABS: ALBUMIN 3.5 g/dl (3.4-5.0)
[2021-06-13 08:34] LABS: CREATININE 0.6 mg/dL (0.55-1.3)
[2021-06-13 08:39] LABS: SICKLE CELL SCREEN NEGATIVE (NEGATIVE)
[2021-06-13 08:40] LABS: BILIRUBIN,TOTAL 0.7 mg/dL (0.2-1)
[2021-06-13 08:46] LABS: TOT PROT 6.2 g/dl (6.4-8.2)
[2021-06-13] MEDS ORDERED: PT OWN MED DRAWER 7, Y5N ONE (09:52)
[2021-06-13] MEDS: PANTOPRAZOLE SODIUM 40 MG VIAL IVPUSH SCH (09:54)
[2021-06-13] MEDS: ENOXAPARIN NA (PORCINE) 40 MG/0.4 ML DISP.SYRIN SQ SCH (09:55)
[2021-06-13] MEDS: PROCHLORPERAZINE INJECTION 10 MG/2 ML VIAL IVPB PRN ×2 (14:17→20:55)
[2021-06-13] MEDS ORDERED: ONDANSETRON 4 MG TABLET PO ONE (14:24)
[2021-06-14] MEDS: SODIUM CHLORIDE 1,000 ML IV SCH (01:50)
[2021-06-14 08:25] LABS: HEMATOCRIT 33.4 % (35.4-49); HEMOGLOBIN 11.2 GM/dL (11.7-16.9); MCH 28.7 pg (25.7-33.7); MCHC 33.6 g/dl (32.0-35.9); MEAN CELL VOLUME 85.3 fl (80-96); MEAN PLT VOLUME 8.9 fl (7.5-11.1); PLATELET COUNT 246 10^3/uL (134-434); RBC 3.92 M/mm3 (4.00-5.60); WHITE BLOOD COUNT 10.5 K/mm3 (4.0-10.0)
[2021-06-14 08:40] LABS: BLOOD UREA NITROGEN 5.6 mg/dL (7-18); CALCIUM 8.6 mg/dL (8.5-10.1)
[2021-06-14 08:43] LABS: CREATININE 0.6 mg/dL (0.55-1.3)
[2021-06-14] MEDS: ENOXAPARIN NA (PORCINE) 40 MG/0.4 ML DISP.SYRIN SQ SCH (09:20)
[2021-06-14] MEDS: PANTOPRAZOLE SODIUM 40 MG VIAL IVPUSH SCH (10:18)
[2021-06-14] MEDS ORDERED: PANTOPRAZOLE 40 MG TABLET PO ONE (10:24)
[2021-06-14 13:16] VITALS: BP 141/69; PULSE 102; TEMP 98.3
[2021-06-15 18:09] LABS: GLIADIN ANTIBODY IGA 3 units (0-19); GLIADIN ANTIBODY IGG 2 units (0-19); TRANSGLUTAMINASE IGG < 2 U/mL (0-5)
== END 2021-06-14 14:35 | disposition home or self-care (01) ==
LOC: JER 21:11 → UNDOADMOB 06-12 02:17 → JERBED 06-12 02:17 → INTOOBSV 06-12 02:17 → J7W 06-12 09:53 → JERBED 06-12 09:53 → J7W 06-12 10:10 → JERBED 06-12 10:10
PROVIDERS: ADMIT Internal Medicine
PROC: 3E023GC Introduction of Other Therapeutic Substance into Muscle, Percutaneous Approach (ICD-10-PCS; principal; 2021-06-12)
PROC: 3E033GC Introduction of Other Therapeutic Substance into Peripheral Vein, Percutaneous Approach (ICD-10-PCS; 2021-06-12)
PROC: 3E0337Z Introduction of Electrolytic and Water Balance Substance into Peripheral Vein, Percutaneous Approach (ICD-10-PCS; 2021-06-12)
DX: F12.90 Cannabis use, unspecified, uncomplicated (principal); R11.2 Nausea with vomiting, unspecified; F32.9 Major depressive disorder, single episode, unspecified
CPT/HCPCS: 36415; 71045-TC-FY; 80048; 80053; 81003; 82607; 82728; 82746; 82784; 83010; 83516; 83540; 83550; 83690; 83735; 84100; 85025; 85027; 85045; 85660; 93005; 93010; 96361; 96365; 96372; 96375; 99285-25; C9803; G0378; U0003; U0005

== ENCOUNTER 2021-07-29 09:07 | Observation (INO) | payer OTHER ==
[2021-07-29] MEDS ORDERED: SODIUM CHLORIDE 1,000 ML IV STA (10:12)
[2021-07-29] MEDS ORDERED: ONDANSETRON 4 MG/2 ML VIAL IVPUSH ONE ×2 (10:14→17:21)
[2021-07-29] MEDS ORDERED: LORazepam 2 MG/ML SDV VIAL IVPUSH ONE (10:24)
[2021-07-29] MEDS ORDERED: ONDANSETRON 4 MG/2 ML VIAL ONE ×2 (12:07→12:09)
[2021-07-29] MEDS ORDERED: LORazepam 2 MG/ML SDV VIAL ONE (12:07)
[2021-07-29 12:33] LABS: HEMATOCRIT 38.3 % (35.4-49); HEMOGLOBIN 12.7 GM/dL (11.7-16.9); MCH 27.8 pg (25.7-33.7); MCHC 33.2 g/dl (32.0-35.9); MEAN CELL VOLUME 83.8 fl (80-96); MEAN PLT VOLUME 8.3 fl (7.5-11.1); PLATELET COUNT 310 10^3/uL (134-434); RBC 4.57 M/mm3 (4.00-5.60); RDW 13.7 % (11.9-15.9); WHITE BLOOD COUNT 22.5 K/mm3 (4.0-10.0)
[2021-07-29 12:45] LABS: ALBUMIN 4.2 g/dl (3.4-5.0); BLOOD UREA NITROGEN 9.9 mg/dL (7-18); CALCIUM 9.9 mg/dL (8.5-10.1)
[2021-07-29 12:50] LABS: BILIRUBIN,TOTAL 0.4 mg/dL (0.2-1)
[2021-07-29 12:51] LABS: TOT PROT 7.8 g/dl (6.4-8.2)
[2021-07-29 14:06] LABS: ANISOCYTOSIS 0; HELMET CELLS 0; HOWELL-JOLLY BODIES 0; MACROCYTOSIS 0; OVALOCYTE 0; PLATELET ESTIMATE NORMAL; ROULEAU 0; SICKELED CELLS 0; TARGET CELLS 0; TEAR DROP CELLS 0; TOXIC GRANULATION 0
[2021-07-29] MEDS ORDERED: METOCLOPRAMIDE HCL INJECTION 10 MG/2 ML VIAL IVPUSH ONE (15:25)
[2021-07-29] MEDS: SODIUM CHLORIDE 1,000 ML IV SCH ×2 (15:57→17:24)
[2021-07-29] MEDS ORDERED: METOCLOPRAMIDE HCL INJECTION 10 MG/2 ML VIAL ONE (15:58)
[2021-07-29] MEDS ORDERED: ONDANSETRON 4 MG/2 ML VIAL IVPUSH PRN (17:39)
[2021-07-29] MEDS ORDERED: ACETAMINOPHEN 325 MG TABLET (FP) PO PRN (17:39)
[2021-07-29] MEDS ORDERED: DEXTROSE 5%-WATER - 50 ML IVPB ONE (18:15)
[2021-07-29] MEDS ORDERED: cefTRIAXone SODIUM 1 GM VIAL ONE (18:15)
[2021-07-29] MEDS ORDERED: PROCHLORPERAZINE MALEATE 5 MG TABLET PO PRN (18:24)
[2021-07-29] MEDS: CEFTRIAXONE 1 GM in DEXTROSE 5%-WATER - 50 ML IVPB SCH (18:28)
[2021-07-29 19:10] VITALS: BMI 19.3
[2021-07-29] MEDS: D5-NS + 20 MEQ KCL - 20 MEQ/1,000 ML INFUS.BAG IV SCH (19:24)
[2021-07-29] MEDS: PANTOPRAZOLE SODIUM 40 MG VIAL IVPUSH SCH (19:24)
[2021-07-29] MEDS: ONDANSETRON 4 MG/2 ML VIAL IVPUSH PRN ×2 (19:24→22:40)
[2021-07-29] MEDS ORDERED: PT OWN MED DRAWER 7, Y5N ONE (22:24)
[2021-07-30] MEDS ORDERED: PROCHLORPERAZINE INJECTION 10 MG/2 ML VIAL IVPB ONE (01:06)
[2021-07-30 01:26] LABS: URINE APPEARANCE CLEAR; URINE BILIRUBIN NEGATIVE (NEGATIVE); URINE COLOR YELLOW; URINE GLUCOSE (UA) NEGATIVE (NEGATIVE)
[2021-07-30 01:27] LABS: PH,URINE 8.5 (5.0-8.0); URINE KETONE 40 mg/dl (NEGATIVE); URINE PROTEIN 3+ (NEGATIVE)
[2021-07-30 01:28] LABS: URINE LEUK ESTERASE NEGATIVE (NEGATIVE); URINE NITRITE NEGATIVE (NEGATIVE); URINE UROBILINOGEN 0.2 mg/dL (0.2-1.0)
[2021-07-30 01:58] LABS: COCAINE, UR NEGATIVE (NEGATIVE); METHADONE, UR NEGATIVE (NEGATIVE); OPIATES, URI NEGATIVE (NEGATIVE); PHENCYCLIDINE,URINE NEGATIVE (NEGATIVE); URINE AMPHETAMINES NEGATIVE (NEGATIVE); URINE BARBITURATES NEGATIVE (NEGATIVE)
[2021-07-30 01:59] LABS: URINE BENZODIAZEPINES NEGATIVE (NEGATIVE)
[2021-07-30] MEDS: D5-NS + 20 MEQ KCL - 20 MEQ/1,000 ML INFUS.BAG IV SCH (05:48)
[2021-07-30] MEDS ORDERED: LORazepam 2 MG/ML SDV VIAL IVPUSH PRN (08:17)
[2021-07-30 08:49] LABS: BASO % 0.1 % (0-2.0); HEMATOCRIT 32.8 % (35.4-49); LYMPH % 9.8 % (8-40); MCH 28.3 pg (25.7-33.7); MCHC 33.5 g/dl (32.0-35.9); MEAN CELL VOLUME 84.7 fl (80-96); MEAN PLT VOLUME 8.5 fl (7.5-11.1); NEUT % 81.1 % (42.8-82.8); PLATELET COUNT 231 10^3/uL (134-434); RBC 3.87 M/mm3 (4.00-5.60); RDW 13.7 % (11.9-15.9); WHITE BLOOD COUNT 15.4 K/mm3 (4.0-10.0)
[2021-07-30 09:11] LABS: ALBUMIN 3.7 g/dl (3.4-5.0); BLOOD UREA NITROGEN 9.5 mg/dL (7-18); CALCIUM 8.9 mg/dL (8.5-10.1)
[2021-07-30 09:14] LABS: CREATININE 0.8 mg/dL (0.55-1.3)
[2021-07-30 09:17] LABS: BILIRUBIN,TOTAL 0.5 mg/dL (0.2-1); TOT PROT 6.7 g/dl (6.4-8.2)
[2021-07-30] MEDS ORDERED: FLU VACC QS2021-22(6MOS UP)/PF 60 MCG/0.5 ML SYRINGE IM ONE (10:00)
[2021-07-30] MEDS ORDERED: ENOXAPARIN NA (PORCINE) 40 MG/0.4 ML DISP.SYRIN SQ SCH (10:00)
[2021-07-30] MEDS ORDERED: DEXTROSE 5%-WATER - 50 ML IVPB ONE (10:12)
[2021-07-30] MEDS ORDERED: cefTRIAXone SODIUM 1 GM VIAL ONE (10:12)
[2021-07-30] MEDS: CEFTRIAXONE 1 GM in DEXTROSE 5%-WATER - 50 ML IVPB SCH (10:24)
[2021-07-30] MEDS: PANTOPRAZOLE SODIUM 40 MG VIAL IVPUSH SCH (10:31)
[2021-07-30 14:54] VITALS: BP 124/58; PULSE 84; TEMP 99.5
== END 2021-07-30 15:37 | disposition left against medical advice (07) ==
LOC: JER 09:07 → INTOOBSV 15:35 → JERBED 15:35 → UNDOADMOB 15:35 → J5S 17:09 → JERBED 17:09 → J5S 07-30 14:56 → JERBED 07-30 14:56
PROVIDERS: ADMIT Internal Medicine; ATTEND Nurse Practitioner Family
PROC: 3E023GC Introduction of Other Therapeutic Substance into Muscle, Percutaneous Approach (ICD-10-PCS; principal; 2021-07-30)
PROC: 3E023NZ Introduction of Analgesics, Hypnotics, Sedatives into Muscle, Percutaneous Approach (ICD-10-PCS; 2021-07-30)
PROC: 3E03329 Introduction of Other Anti-infective into Peripheral Vein, Percutaneous Approach (ICD-10-PCS; 2021-07-30)
PROC: 3E033GC Introduction of Other Therapeutic Substance into Peripheral Vein, Percutaneous Approach (ICD-10-PCS; 2021-07-30)
PROC: 3E0234Z Introduction of Serum, Toxoid and Vaccine into Muscle, Percutaneous Approach (ICD-10-PCS; 2021-07-30)
PROC: 3E033NZ Introduction of Analgesics, Hypnotics, Sedatives into Peripheral Vein, Percutaneous Approach (ICD-10-PCS; 2021-07-30)
PROC: 3E0337Z Introduction of Electrolytic and Water Balance Substance into Peripheral Vein, Percutaneous Approach (ICD-10-PCS; 2021-07-30)
DX: F12.90 Cannabis use, unspecified, uncomplicated (principal); F17.210 Nicotine dependence, cigarettes, uncomplicated; R11.2 Nausea with vomiting, unspecified; D72.829 Elevated white blood cell count, unspecified
CPT/HCPCS: 36415; 74177-TC; 80053; 80307; 81003; 83605; 83690; 85025; 87040; 87086; 90686; 93005; 93010; 96361; 96365; 96372; 96375; 99285-25; C9803; G0378; U0003; U0005

== ENCOUNTER 2021-09-26 08:21 | Observation (INO) | payer OTHER ==
[2021-09-26] MEDS ORDERED: LACTATED RINGERS SOLUTION 1,000 ML IV STA ×2 (09:25→09:26)
[2021-09-26] MEDS ORDERED: FAMOTIDINE 20 MG/50 ML IVPB 20 MG/50 ML MG IVPB ONE ×2 (09:25→09:55)
[2021-09-26] MEDS ORDERED: ACETAMINOPHEN 1000 MG/100 ML VIAL IVPB ONE (09:25)
[2021-09-26] MEDS ORDERED: METOCLOPRAMIDE HCL INJECTION 10 MG/2 ML VIAL IVPUSH ONE (09:26)
[2021-09-26] MEDS ORDERED: ACETAMINOPHEN INJECTION 100 ML IVPB ONE (09:55)
[2021-09-26] MEDS ORDERED: METOCLOPRAMIDE HCL INJECTION 10 MG/2 ML VIAL ONE (09:55)
[2021-09-26 10:39] LABS: BASO % 0.1 % (0-2.0); EOS % 0.1 % (0-4.5); HEMATOCRIT 36.1 % (35.4-49); HEMOGLOBIN 11.7 GM/dL (11.7-16.9); LYMPH % 7.9 % (8-40); MCH 27.4 pg (25.7-33.7); MCHC 32.5 g/dl (32.0-35.9); MEAN CELL VOLUME 84.1 fl (80-96); MEAN PLT VOLUME 9.7 fl (7.5-11.1); NEUT % 86.9 % (42.8-82.8); PLATELET COUNT 265 10^3/uL (134-434); RBC 4.28 M/mm3 (4.00-5.60); RDW 13.1 % (11.9-15.9); WHITE BLOOD COUNT 19.6 K/mm3 (4.0-10.0)
[2021-09-26 10:53] LABS: CHLORIDE 107 mmol/L (98-107); SODIUM 141 mmol/L (136-145)
[2021-09-26 10:55] LABS: CALCIUM 9.1 mg/dL (8.5-10.1)
[2021-09-26 10:56] LABS: ALBUMIN 3.8 g/dl (3.4-5.0); ANION GAP 10 MMOL/L (8-16); BLOOD UREA NITROGEN 7.5 mg/dL (7-18); CO2 23 mmol/L (21-32); GLUCOSE,RANDOM 135 mg/dL (74-106); LIPASE 291 U/L (73-393); MAGNESIUM 2.1 mg/dL (1.8-2.4)
[2021-09-26 10:59] LABS: CREATININE 0.9 mg/dL (0.55-1.3); SGOT/AST 14 U/L (15-37); SGPT/ALT 15 U/L (13-61)
[2021-09-26 11:00] LABS: BILIRUBIN,TOTAL 0.2 mg/dL (0.2-1); TOT PROT 7.1 g/dl (6.4-8.2)
[2021-09-26 11:01] LABS: ALK PHOS 86 U/L (45-117)
[2021-09-26] MEDS ORDERED: HALOPERIDOL LACTATE 5 MG/ML IM ONE (11:27)
[2021-09-26] MEDS ORDERED: HALOPERIDOL LACTATE 5 MG/ML ONE (11:49)
[2021-09-26] MEDS ORDERED: LORazepam 2 MG/ML SDV VIAL IVPUSH ONE (16:01)
[2021-09-26] MEDS ORDERED: LORazepam 2 MG/ML SDV VIAL ONE (16:10)
[2021-09-26 17:41] LABS: PH,URINE >= 9.0 (5.0-8.0); URINE APPEARANCE CLEAR; URINE BILIRUBIN NEGATIVE (NEGATIVE); URINE COLOR YELLOW; URINE GLUCOSE (UA) NEGATIVE (NEGATIVE); URINE KETONE TRACE (NEGATIVE); URINE LEUK ESTERASE NEGATIVE (NEGATIVE); URINE NITRITE NEGATIVE (NEGATIVE); URINE PROTEIN NEGATIVE (NEGATIVE); URINE UROBILINOGEN 0.2 mg/dL (0.2-1.0)
[2021-09-26] MEDS ORDERED: ONDANSETRON 4 MG/2 ML VIAL IVPUSH PRN (19:41)
[2021-09-26] MEDS ORDERED: SODIUM CHLORIDE 1,000 ML IV SCH (19:45)
[2021-09-27 02:34] VITALS: BMI 20.7
[2021-09-27] MEDS ORDERED: SODIUM CHLORIDE 1,000 ML IV SCH (08:37)
[2021-09-27 08:39] LABS: BASO % 0.2 % (0-2.0); HEMATOCRIT 34.5 % (35.4-49); HEMOGLOBIN 11.5 GM/dL (11.7-16.9); LYMPH % 9.3 % (8-40); MCH 28.1 pg (25.7-33.7); MCHC 33.2 g/dl (32.0-35.9); MEAN CELL VOLUME 84.5 fl (80-96); MONO % 6.7 % (3.8-10.2); NEUT % 83.8 % (42.8-82.8); PLATELET COUNT 262 10^3/uL (134-434); RBC 4.08 M/mm3 (4.00-5.60); RDW 13.5 % (11.9-15.9)
[2021-09-27 09:04] LABS: CALCIUM 9.6 mg/dL (8.5-10.1)
[2021-09-27 09:05] LABS: ALBUMIN 3.9 g/dl (3.4-5.0); BLOOD UREA NITROGEN 6.9 mg/dL (7-18); MAGNESIUM 2.5 mg/dL (1.8-2.4)
[2021-09-27 09:08] LABS: CREATININE 0.7 mg/dL (0.55-1.3); PHOSPHOROUS 3.6 mg/dL (2.5-4.9)
[2021-09-27 09:10] LABS: BILIRUBIN,TOTAL 0.4 mg/dL (0.2-1)
[2021-09-27] MEDS ORDERED: FAMOTIDINE 20 MG TABLET PO SCH (10:00)
[2021-09-27 11:06] VITALS: BP 108/66; PULSE 77; TEMP 98.9
== END 2021-09-27 15:53 | disposition home or self-care (01) ==
LOC: JER 08:21 → INTOOBSV 15:11 → JERBED 15:11 → J6S 20:21
PROVIDERS: ADMIT Internal Medicine; ATTEND Internal Medicine
PROC: 3E033GC Introduction of Other Therapeutic Substance into Peripheral Vein, Percutaneous Approach (ICD-10-PCS; principal; 2021-09-26)
PROC: 3E023GC Introduction of Other Therapeutic Substance into Muscle, Percutaneous Approach (ICD-10-PCS; 2021-09-26)
PROC: 3E0337Z Introduction of Electrolytic and Water Balance Substance into Peripheral Vein, Percutaneous Approach (ICD-10-PCS; 2021-09-26)
PROC: 3E033NZ Introduction of Analgesics, Hypnotics, Sedatives into Peripheral Vein, Percutaneous Approach (ICD-10-PCS; 2021-09-26)
PROC: 3E033GC Introduction of Other Therapeutic Substance into Peripheral Vein, Percutaneous Approach (ICD-10-PCS; 2021-09-26)
DX: T40.711A Poisoning by cannabis, accidental (unintentional), initial encounter (principal); R11.2 Nausea with vomiting, unspecified; D72.829 Elevated white blood cell count, unspecified
CPT/HCPCS: 36415; 74177-TC; 80053; 81003; 82550; 83690; 83735; 84100; 84484; 85025; 93005; 93010; 96361; 96365; 96372; 96375; 99285-25; C9803; G0378; J0131; Q9967; U0003; U0005

== ENCOUNTER 2021-10-22 06:10 | Emergency (ER) | payer OTHER ==
[2021-10-22 06:16] VITALS: BP 111/72; PULSE 100; TEMP 98.3
[2021-10-22] MEDS ORDERED: SODIUM CHLORIDE 0.9% 500 ML INFUS.BAG IV ONE (07:33)
[2021-10-22] MEDS ORDERED: METOCLOPRAMIDE HCL INJECTION 10 MG/2 ML VIAL IVPUSH ONE (07:33)
[2021-10-22] MEDS ORDERED: METOCLOPRAMIDE HCL INJECTION 10 MG/2 ML VIAL IVPB ONE ×2 (07:36→07:37)
[2021-10-22] MEDS ORDERED: FAMOTIDINE 20 MG/50 ML IVPB 20 MG/50 ML MG IVPB ONE ×2 (07:39→10:28)
[2021-10-22] MEDS ORDERED: MAG HYDROX/AL HYDROX/SIMETH 30 ML UNIT-DOSE CUP PO ONE (07:39)
[2021-10-22] MEDS ORDERED: METOCLOPRAMIDE HCL INJECTION 10 MG/2 ML VIAL ONE (07:57)
[2021-10-22 08:57] LABS: HEMATOCRIT 36.5 % (35.4-49); HEMOGLOBIN 11.7 GM/dL (11.7-16.9); MCH 27.1 pg (25.7-33.7); MCHC 32.1 g/dl (32.0-35.9); MEAN CELL VOLUME 84.5 fl (80-96); MEAN PLT VOLUME 9.6 fl (7.5-11.1); PLATELET COUNT 240 10^3/uL (134-434); RBC 4.32 M/mm3 (4.00-5.60); RDW 13.5 % (11.9-15.9); WHITE BLOOD COUNT 19.6 K/mm3 (4.0-10.0)
[2021-10-22 09:02] LABS: BASO % 0.2 % (0-2.0); LYMPH % 1.7 % (8-40); MONO % 6.3 % (3.8-10.2); NEUT % 91.8 % (42.8-82.8)
[2021-10-22 09:14] LABS: ALBUMIN 4.5 g/dl (3.4-5.0); BILIRUBIN,TOTAL 0.3 mg/dL (0.2-1); BLOOD UREA NITROGEN 9.4 mg/dL (7-18); CALCIUM 9.9 mg/dL (8.5-10.1); TOT PROT 7.5 g/dl (6.4-8.2)
[2021-10-22] MEDS ORDERED: HALOPERIDOL LACTATE 5 MG/ML IM ONE (10:06)
[2021-10-22] MEDS ORDERED: MAG HYDROX/AL HYDROX/SIMETH 30 ML UNIT-DOSE CUP ONE (10:28)
[2021-10-22] MEDS ORDERED: HALOPERIDOL LACTATE 5 MG/ML ONE (10:28)
[2021-10-22] MEDS ORDERED: LACTATED RINGERS SOLUTION 1000 ML INFUS.BAG IV ONE (11:24)
[2021-10-22 12:21] LABS: ANISOCYTOSIS 0; MACROCYTOSIS 0; PLATELET ESTIMATE NORMAL
== END 2021-10-22 13:07 | disposition home or self-care (01) ==
LOC: JER 06:10
PROC: 3E033NZ Introduction of Analgesics, Hypnotics, Sedatives into Peripheral Vein, Percutaneous Approach (ICD-10-PCS; principal; 2021-10-22)
PROC: 3E033GC Introduction of Other Therapeutic Substance into Peripheral Vein, Percutaneous Approach (ICD-10-PCS; 2021-10-22)
PROC: 3E033GC Introduction of Other Therapeutic Substance into Peripheral Vein, Percutaneous Approach (ICD-10-PCS; 2021-10-22)
DX: F12.188 Cannabis abuse with other cannabis-induced disorder (principal); R11.2 Nausea with vomiting, unspecified
CPT/HCPCS: 36415; 80053; 82962; 83690; 85025; 93005; 93010; 96365; 96375; 99284-25

== ENCOUNTER 2022-06-24 21:15 | Observation (INO) | payer OTHER ==
[2022-06-24] MEDS ORDERED: ONDANSETRON 4 MG/2 ML VIAL IVPUSH ONE (22:28)
[2022-06-24] MEDS ORDERED: LACTATED RINGERS SOLUTION 1000 ML INFUS.BAG IV ONE (22:29)
[2022-06-24] MEDS ORDERED: ONDANSETRON 4 MG/2 ML VIAL ONE (22:48)
[2022-06-24 23:09] LABS: BASO % 0.3 % (0-2.0); EOS % 0.1 % (0-4.5); HEMATOCRIT 36.3 % (35.4-49); HEMOGLOBIN 11.6 GM/dL (11.7-16.9); LYMPH % 8.4 % (8-40); MCH 26.7 pg (25.7-33.7); MCHC 31.9 g/dl (32.0-35.9); MEAN CELL VOLUME 83.6 fl (80-96); MEAN PLT VOLUME 9.2 fl (7.5-11.1); MONO % 4.6 % (3.8-10.2); NEUT % 86.6 % (42.8-82.8); PLATELET COUNT 292 10^3/uL (134-434); RBC 4.35 M/mm3 (4.00-5.60); RDW 13.7 % (11.9-15.9)
[2022-06-24] MEDS ORDERED: FAMOTIDINE 20 MG/50 ML IVPB 20 MG/50 ML MG IVPB ONE ×2 (23:28→23:46)
[2022-06-24 23:31] LABS: ALBUMIN 4.5 g/dl (3.4-5.0); BLOOD UREA NITROGEN 19.2 mg/dL (7-18); CALCIUM 10.2 mg/dL (8.5-10.1)
[2022-06-24 23:32] LABS: MAGNESIUM 2.2 mg/dL (1.8-2.4)
[2022-06-24 23:34] LABS: CREATININE 0.9 mg/dL (0.55-1.3)
[2022-06-24 23:36] LABS: BILIRUBIN,TOTAL 0.3 mg/dL (0.2-1); TOT PROT 7.6 g/dl (6.4-8.2)
[2022-06-24 23:47] LABS: ANISOCYTOSIS 1+; MACROCYTOSIS 0
[2022-06-25] MEDS ORDERED: SODIUM CHLORIDE 1,000 ML IV SCH (03:00)
[2022-06-25] MEDS ORDERED: PROCHLORPERAZINE INJECTION 10 MG/2 ML VIAL IVPB PRN (05:39)
[2022-06-25] MEDS ORDERED: PROCHLORPERAZINE INJECTION 10 MG/2 ML VIAL ONE (06:08)
[2022-06-25 06:20] LABS: BASO % 0.1 % (0-2.0); HEMATOCRIT 34.5 % (35.4-49); LYMPH % 2.1 % (8-40); MCH 26.5 pg (25.7-33.7); MCHC 31.9 g/dl (32.0-35.9); MEAN CELL VOLUME 83.1 fl (80-96); MEAN PLT VOLUME 9.4 fl (7.5-11.1); MONO % 2.3 % (3.8-10.2); NEUT % 95.5 % (42.8-82.8); PLATELET COUNT 276 10^3/uL (134-434); RBC 4.15 M/mm3 (4.00-5.60); RDW 13.4 % (11.9-15.9); WHITE BLOOD COUNT 23.1 K/mm3 (4.0-10.0)
[2022-06-25 06:41] LABS: ALBUMIN 4.6 g/dl (3.4-5.0); BLOOD UREA NITROGEN 19.8 mg/dL (7-18); CALCIUM 10.3 mg/dL (8.5-10.1); MAGNESIUM 2.2 mg/dL (1.8-2.4)
[2022-06-25 06:44] LABS: PHOSPHOROUS 1.5 mg/dL (2.5-4.9)
[2022-06-25 06:46] LABS: BILIRUBIN,TOTAL 0.3 mg/dL (0.2-1); TOT PROT 7.6 g/dl (6.4-8.2)
[2022-06-25 06:50] VITALS: TEMP 99.1
[2022-06-25 07:48] LABS: ANISOCYTOSIS 2+; MACROCYTOSIS 0; OVALOCYTE 2+; TARGET CELLS 2+; TEAR DROP CELLS 2+
[2022-06-25] MEDS ORDERED: NICOTINE 7 MG/24 HOURS TOPICAL PATCH TD ONE (08:56)
[2022-06-25] MEDS ORDERED: PANTOPRAZOLE SODIUM 40 MG VIAL ONE (08:56)
[2022-06-25] MEDS ORDERED: ENOXAPARIN NA (PORCINE) 40 MG/0.4 ML DISP.SYRIN SQ ONE (08:56)
[2022-06-25] MEDS ORDERED: NICOTINE 7 MG/24 HOURS TOPICAL PATCH TD SCH (10:00)
[2022-06-25] MEDS ORDERED: PANTOPRAZOLE SODIUM 40 MG VIAL IVPUSH SCH (10:00)
[2022-06-25] MEDS ORDERED: ENOXAPARIN NA (PORCINE) 40 MG/0.4 ML DISP.SYRIN SQ SCH (10:00)
[2022-06-25 11:44] VITALS: BP 110/67; PULSE 77; RESP 14
[2022-06-25 13:27] LABS: EPI CELLS 25 /uL (0-25.1); HYALINE CASTS 0 /uL (0-3.1); PH,URINE >= 9.0 (5.0-8.0); URINE APPEARANCE CLEAR; URINE BACTERIA 18 /uL (0-1359); URINE BILIRUBIN NEGATIVE (NEGATIVE); URINE COLOR YELLOW; URINE GLUCOSE (UA) NEGATIVE (NEGATIVE); URINE KETONE 1+ (NEGATIVE); URINE LEUK ESTERASE NEGATIVE (NEGATIVE); URINE NITRITE NEGATIVE (NEGATIVE); URINE PROTEIN 1+ (NEGATIVE); URINE RBC 8 /uL (0-23.9); URINE UROBILINOGEN 0.2 mg/dL (0.2-1.0); URINE WBC 6 /uL (0-25.8)
== END 2022-06-25 16:58 | disposition left against medical advice (07) ==
LOC: JER 21:15 → JERBED 23:41
PROVIDERS: ADMIT Internal Medicine; ATTEND Internal Medicine
PROC: 3E033GC Introduction of Other Therapeutic Substance into Peripheral Vein, Percutaneous Approach (ICD-10-PCS; principal; 2022-06-24)
PROC: 3E0337Z Introduction of Electrolytic and Water Balance Substance into Peripheral Vein, Percutaneous Approach (ICD-10-PCS; 2022-06-24)
DX: R11.15 Cyclical vomiting syndrome unrelated to migraine (principal); D72.829 Elevated white blood cell count, unspecified; F17.210 Nicotine dependence, cigarettes, uncomplicated
CPT/HCPCS: 36415; 80053; 81003; 83690; 83735; 84100; 85025; 87040; 87086; 93005; 93010; 96365; 96372; 96375; 99285-25; C9803-CS; G0378; U0003; U0005

== ENCOUNTER 2024-08-14 14:20 | Emergency (ER) | payer OTHER ==
[2024-08-14 14:48] VITALS: BMI 19.8
[2024-08-14] MEDS ORDERED: HALOPERIDOL LACTATE 5 MG/ML ONE (14:59)
[2024-08-14] MEDS: HALOPERIDOL LACTATE 5 MG/ML IM ONE (15:10)
[2024-08-14 15:52] LABS: HEMATOCRIT 39.5 % (35.4-49); HEMOGLOBIN 12.8 GM/dL (11.7-16.9); MCH 27.6 pg (25.7-33.7); MCHC 32.3 g/dl (32.0-35.9); MEAN CELL VOLUME 85.4 fl (80-96); MEAN PLT VOLUME 8.2 fl (7.5-11.1); PLATELET COUNT 274 10^3/uL (134-434); RBC 4.63 M/mm3 (4.00-5.60); RDW 13.2 % (11.9-15.9); WHITE BLOOD COUNT 20.2 K/mm3 (4.0-10.0)
[2024-08-14 16:14] LABS: POTASSIUM 4.4 mmol/L (3.5-5.1)
[2024-08-14 16:16] LABS: CALCIUM 9.5 mg/dL (8.5-10.1)
[2024-08-14 16:17] LABS: ALBUMIN 4.2 g/dl (3.4-5.0); BLOOD UREA NITROGEN 17.7 mg/dL (7-18)
[2024-08-14 16:21] LABS: BILIRUBIN,TOTAL 0.3 mg/dL (0.2-1); TOT PROT 7.5 g/dl (6.4-8.2)
[2024-08-14 16:32] LABS: ANISOCYTOSIS 0; MACROCYTOSIS 0
[2024-08-14] MEDS: SODIUM CHLORIDE 0.9% 1000 ML INFUS.BAG IV ONE (16:48)
[2024-08-14 20:40] VITALS: BP 107/47; PULSE 87; RESP 18; TEMP 98.1
== END 2024-08-14 21:25 | disposition home or self-care (01) ==
LOC: JER 14:20
PROC: 3E033GC Introduction of Other Therapeutic Substance into Peripheral Vein, Percutaneous Approach (ICD-10-PCS; principal; 2024-08-14)
PROC: 3E023GC Introduction of Other Therapeutic Substance into Muscle, Percutaneous Approach (ICD-10-PCS; 2024-08-14)
DX: R11.2 Nausea with vomiting, unspecified (principal); R10.9 Unspecified abdominal pain; F12.90 Cannabis use, unspecified, uncomplicated; Z20.822 Contact with and (suspected) exposure to COVID-19
CPT/HCPCS: 0241U-QW; 36415; 80053; 83690; 83735; 85025; 99284-25